=== PATIENT | female | born 1965 | race Caucasian/White ===

== ENCOUNTER → 2023-12-09 15:57 | Outpatient (REF) | payer BC, SELFPAY | LOC: RAD 15:57 | PROVIDERS: ATTENDING PHYSICIAN Emergency Medicine | DX: K57.92 Diverticulitis of intestine, part unspecified, without perforation or abscess without bleeding (principal); R14.0 Abdominal distension (gaseous) | CPT/HCPCS: 74177; Q9967 ==

== ENCOUNTER → 2023-12-26 17:37 | Outpatient (REF) | payer BC, SELFPAY | LOC: MRI 3T 17:37 | PROVIDERS: ATTENDING PHYSICIAN Emergency Medicine; FAMILY PHYSICIAN Family Medicine | DX: K86.2 Cyst of pancreas (principal) | CPT/HCPCS: 74183; A9575 ==

== ENCOUNTER 2024-09-30 21:04 | Emergency (ER) | payer BC, SELFPAY ==
[2024-09-30 21:07] VITALS: BP 158/88
[2024-09-30] MEDS: DUONEB 3 ML INH (22:14)
--- NOTE | 2024-09-30 22:15 | ED.GENMED ---
History of Present Illness
General
Chief Complaint: Blood Sugar Problem
Source: patient
Exam Limitations: none
Time Seen by Provider: 09/30/24 21:46
Nursing documentation reviewed up to this point in time: agreed with
History of Present Illness
History of Present Illness:
59-year-old female presents emergency department due to shortness of breath. She is on prednisone and a Z-Ramo since last Tuesday. It has made her blood sugar elevate. She states she continues to cough. It is nonproductive.
Past History
Past History
ED Past Medical History: Hypercholesterolemia and Other
ED Past Surgical History: Other (Tubal ligation)
Social History
Tobacco: Non-smoker
Alcohol: Occasional
Drug: None
Personal:
Living: with family
Employment: Not employed
Family History
Family History: Early CAD; Negative Cancer
Review of Systems
Review of Systems
Allergies reviewed?: Yes
All Other Systems: Not applicable
Constitutional: Reports no symptoms
EENT: Reports no symptoms
Respiratory: Reports cough and trouble breathing
Cardiac: Reports no symptoms
ABD/GI: Reports no symptoms
: Reports no symptoms
Musculoskeletal: Reports no symptoms
Skin: Reports no symptoms
Neurological: Reports no symptoms
Endocrine: Reports no symptoms
Hematologic/Lymphatic: Reports no symptoms
Psychiatric: Reports no symptoms
Phy Exam
Physical Exam
Physical Exam:
Physical Exam
General: no apparent distress, not acutely ill
Neck: supple. no meningeal signs. normal posterior pharynx
Heart: s1/s2 regular rate and rhythm, no murmur. equal radial
pulses.
HEENT: Pupils equal round reactive to light, EOMI
Lungs: no acute respiratory distress. clear bilaterally, cough
Abdomen: normal bowel sounds. not tender. no CVAT
Neuro: alert and oriented. no focal neurological deficits cranial nerves II through XII intact
Skin: no rash
Psychiatric: well kept. interactive and cooperative
Extremities: no edema. no calf tenderness. negative homans. good distal pulses
Sepsis
Sepsis Screening
Sepsis Assessment: Sepsis Ruled Out
Sepsis Screen
Sepsis Screen: Sepsis Ruled Out
Date: 10/01/24
Time: 00:24
Course
Orders/Labs/Results
Orders:
Orders
09/30/24 21:11
Chest [CR Chest - 2 Views ] Urgent
Comment:
Reason For Exam: PERSISTANT COUGH, SOB
09/30/24 22:06
Complete Blood Count/With Diff Urgent
Comprehensive Metabolic Panel Urgent
09/30/24 22:09
D-Dimer Urgent
09/30/24 22:10
Ipratropium/Albuterol Sulfate [Duoneb] 3 ml INH R NOW STA
Abnormal Lab Results
09/30/24
22:06
WBC 10.9 H 10^3/uL
(4.8-10.8)
Abs Immat Gran (auto) 0.1 H 10^3/uL
(0-0.05)
Absolute Neuts (auto) 9.4 H 10^3/uL
(1.4-6.5)
Absolute Lymphs (auto) 1.1 L 10^3/uL
(1.2-3.4)
Immature Gran % 1.0 H %
(0-0.5)
Neutrophils % 85.9 H %
(42.2-75.2)
Lymphocytes % 9.7 L %
(20.5-51.1)
BUN 23 H mg/dl
(7-17)
Glucose 171 H mg/dl
(70-99)
09/30/24 22:06
09/30/24 22:06
Vital Signs
Initial and Last Documented VS:
Initial Vital Signs
Temp Pulse Resp BP Pulse Ox
97.9 F 82 20 158/88 98
09/30/24 21:07 09/30/24 21:07 09/30/24 21:07 09/30/24 21:07 09/30/24 21:07
Last Documented Vital Signs
Temp Pulse Resp BP Pulse Ox
97.9 F 82 20 158/88 98
09/30/24 21:07 09/30/24 21:07 09/30/24 21:07 09/30/24 21:07 09/30/24 21:07
MDM/Problems Addressed
Differential Diagnosis Includes:
Pneumonia, influenza
MDM/Problems Addressed:
59-year-old female with cough, likely viral URI. Lungs clear, chest x-ray clear. Do not suspect CHF, PE or ACS. Stable for discharge. Patient will stop prednisone. It is not helping her.
Chronic conditions affecting care: DM
Acute Exacerbation and/or Progression of Chronic Illness: DM
*Radiology
Radiology exam reviewed: radiology read reviewed (Chest x-ray no acute findings)
*Pulse Oximetry
Patient hypoxic: no
*Critical Care Note
Total Time (30-74mins, 75-104mins- exclusive of procedures): Not Applicable
Data Reviewed
Further Testing Considered But Not Given:
CT chest not indicated
ED Attending Note
-
Portions of this chart may have been created with voice recognition software.� Occasional wrong word or��sound alike� substitutions may have occurred due to the inherent limitations of voice recognition software.
Discharge Plan
Departure
Patient Disposition: Home (Routine Discharge)
Date of Disposition: 10/01/24
Time of Disposition: 00:17
Patient with high blood pressure during this ER visit?: Yes
Condition: Good
Discharge Problem:
Acute hyperglycemia, Upper respiratory infection
Instructions: Viral Upper Respiratory Infection, Adult (DC), Cough, Adult (DC), BLOOD PRESSURE
Prescriptions:
No Action
pitavastatin calcium [Livalo] 2 MG tablet
2 mg PO DAILY
sucralfate 1 GM/10 ML suspension
1 gm PO ACHS Qty: 60 0RF
Referrals:
Hernán Segundo DO [Family Provider] - Follow up in 1 week
Activity Restrictions/Additional Instructions:
It is okay for you to stop taking the steroids.
Interventions
Interventions:
*Risk Screen - Suicide Last Done: 09/30/24 21:07
*Neglect/Abuse Screening Last Done: 09/30/24 21:07
Discharge Date and Time
Print Language: [email or web address]
[2024-09-30 22:16] LABS: % Basophils 0.2 % (0-2); % Lymphocytes 9.7 % (20.5-51.1); % Monocytes 3.2 % (1.7-9.3); % Neutrophils 85.9 % (42.2-75.2); Absolute Immature Granulocytes 0.1 10^3/uL (0-0.05); Absolute Lymphocytes 1.1 10^3/uL (1.2-3.4); Absolute Monocytes 0.4 10^3/uL (0.1-0.6); Absolute Neutrophils 9.4 10^3/uL (1.4-6.5); Hemoglobin 13.4 g/dL (12.0-16.0); Mean Corp Hgb Conc. 33.5 g/dL (33.0-37.0); Mean Corpuscular Volume 89.5 fL (81.0-99.0); Mean Platelet Volume 9.7 fL (7.4-10.4); Nucleated Red Blood Cells % 0 %; Platelet Count 291 10^3/uL (130-400); Red Blood Cell Count 4.47 10^6/uL (4.20-5.40); Red Cell Dist. Width 12.5 % (11.5-14.5); White Blood Cell Count 10.9 10^3/uL (4.8-10.8)
[2024-09-30 22:29] LABS: ALT (SGPT) 32 U/L (0-35); AST (SGOT) 31 U/L (14-36); Albumin 4.4 g/dl (3.5-5.0); Alkaline Phosphatase 79 U/L (38-126); Blood Urea Nitrogen 23 mg/dl (7-17); Calcium 9.3 mg/dl (8.4-10.2); Carbon Dioxide 25 mmol/L (22-30); Chloride 102 mmol/L (98-107); Glucose 171 mg/dl (70-99); Potassium 4.5 mmol/L (3.5-5.1); Sodium 137 mmol/L (135-145); Total Bilirubin 0.4 mg/dl (0.2-1.3); Total Protein 7.1 g/dl (6.3-8.2); eGFR > 60.00
[2024-09-30 22:34] LABS: D-Dimer < 0.27 ug/mlFEU (0.00-0.50)
== END 2024-10-01 00:32 | disposition home or self-care (01) ==
LOC: EMR 21:04
PROVIDERS: Physician Assistant; EMERGENCY PHYSICIAN Emergency Medicine; FAMILY PHYSICIAN Family Medicine
DX: J06.9 Acute upper respiratory infection, unspecified (principal); R73.9 Hyperglycemia, unspecified; E78.00 Pure hypercholesterolemia, unspecified
CPT/HCPCS: 99284; 94640; 71046; 80053; 85025; 85379

== ENCOUNTER → 2024-10-08 08:15 | Outpatient (REF) | payer BC, SELFPAY | LOC: HWWDC 08:15 | PROVIDERS: ATTENDING PHYSICIAN Family Medicine | DX: Z12.31 Encounter for screening mammogram for malignant neoplasm of breast (principal) | CPT/HCPCS: 77063; 77067 ==

== ENCOUNTER → 2024-10-09 10:55 | Outpatient (REF) | payer BC, SELFPAY | LOC: RAD 10:55 | PROVIDERS: ATTENDING PHYSICIAN Internal Medicine Cardiovascular Disease; FAMILY PHYSICIAN Family Medicine | DX: E78.2 Mixed hyperlipidemia (principal) | CPT/HCPCS: 75571 ==